=== PATIENT | female | born 1950 | race Caucasian/White ===

== ENCOUNTER → 2017-12-06 | Outpatient (CLI) | payer MEDICARE, BC | LOC: M.RAD 09:34 | DX: M47.896 Other spondylosis, lumbar region (principal) ==

== ENCOUNTER → 2018-07-05 | Outpatient (CLI) | payer MEDICARE, BC | LOC: M.RAD 10:38 | DX: J84.10 Pulmonary fibrosis, unspecified (principal); Z86.11 Personal history of tuberculosis ==

== ENCOUNTER → 2018-12-28 | Outpatient (CLI) | payer MEDICARE, BC | LOC: M.CT 10:50 | DX: M53.3 Sacrococcygeal disorders, not elsewhere classified (principal); M43.8X2 Other specified deforming dorsopathies, cervical region; E78.00 Pure hypercholesterolemia, unspecified; I10 Essential (primary) hypertension; G43.909 Migraine, unspecified, not intractable, without status migrainosus; Z87.891 Personal history of nicotine dependence; Z88.5 Allergy status to narcotic agent; Z88.2 Allergy status to sulfonamides; Z88.1 Allergy status to other antibiotic agents; Z79.899 Other long term (current) drug therapy ==

== ENCOUNTER → 2019-01-06 | Outpatient (CLI) | payer MEDICARE, BC | LOC: M.MRI 11:12 | DX: M47.816 Spondylosis without myelopathy or radiculopathy, lumbar region (principal); M51.26 Other intervertebral disc displacement, lumbar region ==

== ENCOUNTER → 2021-08-08 | Outpatient (CLI) | payer MEDICARE | LOC: M.RAD 14:50 | PROVIDERS: ATTEND Internal Medicine | DX: R76.11 Nonspecific reaction to tuberculin skin test without active tuberculosis (principal) ==